=== PATIENT | male | born 1965 | race Caucasian/White ===

== ENCOUNTER 2016-10-17 17:33 | Emergency (ER) | payer OTHER ==
[~2016-10-17] VITALS: Ht 172.7 cm; Wt 100.0 kg
[~2016-10-17 17:33] MED LIST: ALBUTEROL SULF8.5 GM IH; AMITRIPTYLINE H50 MG PO; AMOXICILLIN500 MG PO; ATROVENT 0.06%15 ML BOTH NARES; ATROVENT H200 INHALA IH; AUGMENTIN875 MG PO; Atrovent 0.06% Nasal BOTH NARES; BUPROPION HCL150 M2 PO; CENTRUM COMPLE1 EACH PO; CLARITIN,ALAVAR10 MG PO; CLONAZEPAM0.5 MG PO; CLOPIDOGREL75 MG PO; CYCLOBENZAPRINE10 MG PO; Claritin,Alavart PO; DEPAKOTE250 MG PO; DICLOFENAC SODI75 MG PO; DILANTIN100 MG PO; Depakote PO; FENOFIBRATE160 M1 PO; FISH OIL 1,0001 EAC7 PO; FLONASE16 G1 BOTH NARES; FLUTICASONE PRO16 GM BOTH NARES; FOLIC ACID1 MG PO; Flexeril PO; Flonase BOTH NARES; Folvite PO; HYDROCHLOROTH12.5 M3 PO; Hydrodiuril,Oretic,E PO; IMITREX50 MG PO; IPRATROPIUM BRO15 ML BOTH NARES; Imitrex PO; KEFLEX500 MG PO; KLONOPIN0.5 M1 PO; KlonoPIN PO; LISINOPRIL10 MG PO; LISINOPRIL20 MG PO; LORATADINE10 M2 PO; LYRICA200 MG PO; LYRICA300 MG PO; MELOXICAM15 MG PO; METAXALL800 MG PO; METHOCARBAMOL750 MG PO; MULTIVITAMIN1 EAC2 PO; OMEGA III EPA1000 MG PO; OXYCODONE-APAP1 EAC6 PO; Omega III EPA + DHA PO; PERCOCET 5/31 TABLET PO; PERCOCET 7.51 TABLET PO; PLAVIX75 MG PO; PROAIR HFA8.5 GM IH; Paxil PO; Percocet 7.5/325,End PO; Plavix PO; Proventil,Ventolin H IH; RANITIDINE HCL150 MG PO; ROBAXIN750 MG PO; SIMVASTATIN80 MG PO; SKELAXIN800 MG PO; SUMATRIPTAN SUC50 MG PO; SYMBICORT60 INHALAT IH; Symbicort 160-4.5 mc IH; TIZANIDINE HCL4 M1 PO; Theragran-M,Centrum, PO; VENLAFAXINE HCL75 MG PO; VENTOLIN HFA18 GM IH; ZANTAC150 MG PO; ZOCOR80 MG PO; Zantac,Taladine PO; Zestril,Prinivil PO; Zocor PO
[2016-10-17 20:56] VITALS: BP 100/64
== END 2016-10-17 20:56 | disposition home or self-care (01) ==
LOC: EME → EDBD 17:33 → EME 17:33
DX: S16.1XXA Strain of muscle, fascia and tendon at neck level, initial encounter (principal); S40.011A Contusion of right shoulder, initial encounter; S60.212A Contusion of left wrist, initial encounter; M25.561 Pain in right knee; R51 Headache; V47.6XXA Car passenger injured in collision with fixed or stationary object in traffic accident, initial encounter; Z86.718 Personal history of other venous thrombosis and embolism; Z79.02 Long term (current) use of antithrombotics/antiplatelets; I10 Essential (primary) hypertension; E78.5 Hyperlipidemia, unspecified; J44.9 Chronic obstructive pulmonary disease, unspecified; F17.200 Nicotine dependence, unspecified, uncomplicated
CPT/HCPCS: 70450; 71010; 72125; 73030; 73110; 73564; 99281; 99284; J2270; J2405

== ENCOUNTER 2016-11-13 09:01 | Inpatient (IN) | payer OTHER ==
[~2016-11-13] VITALS: Ht 180.3 cm; Wt 103.2 kg
[2016-11-13 09:26] LABS: POINT-OF-CARE METER ID UU13113702
[2016-11-13] MEDS ORDERED: ROWEEPRA500 MG PO (09:36)
[2016-11-13 10:31] LABS: EOSINOPHIL (%) 1.9 % (0-5); EOSINOPHIL COUNT 0.2 K/uL (0-0.3); HEMATOCRIT 31.9 % (38.0-50.0); IMMATURE GRANULOCYTE (%) 0.6 % (0.0-0.7); IMMATURE GRANULOCYTE COUNT 0.1 K/uL; INSTRUMENT ABS NEUTROPHIL CT 7.8 K/uL; LYMPHOCYTE COUNT 2.4 K/uL (1.0-2.8); MCH 30.9 PG (29.0-34.0); MCHC 33.2 G/DL (30.0-36.0); MEAN PLAT.VOLUME 11.9 uM^3 (9.0-12.4); MONOCYTE COUNT 1.2 K/uL (0-0.8); NEUTROPHIL (%) 66.5 % (45-76); NEUTROPHIL COUNT 7.8 K/uL (1.8-6.4); PLATELET COUNT 210 K/uL (156-360); RBC DIS.WIDTH-CV 13.5 % (11.8-14.6); RBC DIS.WIDTH-SD 46.5 % (39-53); RED BLOOD COUNT 3.43 M/uL (4.00-5.50); WHITE BLOOD COUNT 11.7 K/uL (4.1-10.2)
[2016-11-13 10:51] LABS: CHLORIDE 103 mEq/L (99-109); POTASSIUM 3.8 mEq/L (3.7-5.4); SODIUM 132 mEq/L (136-147); TROP-I INTERPRETATION NEGATIVE; TROPONIN-I < 0.01 ng/mL (0.0-0.30)
[2016-11-13 10:52] LABS: MAGNESIUM 2.4 mg/dL (1.3-2.7)
[2016-11-13 10:53] LABS: GLUCOSE 139 mg/dL (70-99)
[2016-11-13 10:55] LABS: ANION GAP 14 MEQ/L (2-14); TOTAL BILIRUBIN 0.2 mg/dL (0.0-1.0)
[2016-11-13 10:57] LABS: ALKALINE PHOSPHATASE 44 IU/L (3-129); GFR ESTIMATE (CALCULATED) 16 mL/min/
[2016-11-13 10:58] LABS: UREA NITROGEN (BUN) 51 mg/dL (9-23)
[2016-11-13 11:00] LABS: LIPASE 39 U/L (1.0-51.0)
[2016-11-13 11:51] LABS: ADD MIUA? YES; BILIRUBIN NEGATIVE; BLOOD NEGATIVE; COLOR YELLOW ((YELLOW)); GLUCOSE (STRIP) NEGATIVE; KETONES 5; LEUKOCYTES NEGATIVE; NITRITE NEGATIVE; PROTEIN (STRIP) 30; SPECIFIC GRAVITY 1.014 (1.000-1.030); UROBILINOGEN 0.2 MG/DL (0.2-1.0)
[2016-11-13 12:02] LABS: BACTERIA NONE SEEN /HPF; CALCIUM OXALATE CRYSTALS 1+ /HPF; EPITHELIAL CELLS RARE /HPF; GRANULAR CASTS 0-5 /LPF; HYALINE CASTS 15-20 /LPF; MUCUS TRACE /LPF; RED BLOOD CELLS 0-5 /HPF (0-5); UCUL ADDED? NO; WHITE BLOOD CELLS 0-5 /HPF (0-5)
[2016-11-13 14:46] LABS: UR CREATININE CONCENTRATION 166.5 MG/DL
[2016-11-13 15:30] VITALS: BP 105/55
[2016-11-13 18:27] LABS: TROP-I INTERPRETATION NEGATIVE; TROPONIN-I < 0.01 ng/mL (0.0-0.30)
[2016-11-13 18:40] LABS: ANION GAP 9 MEQ/L (2-14); CHLORIDE 104 MEQ/L (99-109); CREATINE KINASE 429 IU/L (1-294); GFR ESTIMATE (CALCULATED) 26 mL/min/; GLUCOSE 130 mg/dL (70-99); POTASSIUM 3.6 MEQ/L (3.7-5.4); SAMPLE HEMOLYSIS CHECK 0; SAMPLE ICTERIC CHECK 0; SAMPLE LIPEMIA CHECK 0; SODIUM 133 MEQ/L (136-147); TOTAL CK 429 IU/L (1-294); UREA NITROGEN (BUN) 42 mg/dL (9-23)
[2016-11-13 19:44] VITALS: BP 88/51
[2016-11-13 20:54] LABS: BASE EXCESS -2.3 mEq/L (-3 to +3); BICARBONATE 23.2 mEq/L (22-26); CARBOXY HGB 3.8 % (0-5); PCO2 42 mm Hg (35-45); PO2 91 mm Hg (80-100); pH 7.35 (7.35-7.45)
[2016-11-13 20:55] LABS: COMMENTS - BLOOD GASES A+C+; DEVICE NC; O2 FLOW 3 L/MIN; SITE LR
[2016-11-14] VITALS (8 sets, daily range): BP systolic 84–158; BP diastolic 43–84
[2016-11-14 00:03] LABS: TROP-I INTERPRETATION NEGATIVE; TROPONIN-I < 0.01 ng/mL (0.0-0.30)
[2016-11-14 06:43] LABS: HEMATOCRIT 31.9 % (38.0-50.0); MCH 31.1 PG (29.0-34.0); MCHC 32.6 G/DL (30.0-36.0); MCV 95.5 FL (86-99); MEAN PLAT.VOLUME 11.8 uM^3 (9.0-12.4); PLATELET COUNT 206 K/uL (156-360); RBC DIS.WIDTH-CV 13.7 % (11.8-14.6); RBC DIS.WIDTH-SD 48.8 % (39-53); RED BLOOD COUNT 3.34 M/uL (4.00-5.50); WHITE BLOOD COUNT 9.1 K/uL (4.1-10.2)
[2016-11-14 08:19] LABS: ANION GAP 7 MEQ/L (2-14); CHLORIDE 111 MEQ/L (99-109); MAGNESIUM 2.2 mg/dl (1.3-2.7); SAMPLE HEMOLYSIS CHECK 0; SAMPLE ICTERIC CHECK 0; SAMPLE LIPEMIA CHECK 0; SODIUM 139 MEQ/L (136-147); UREA NITROGEN (BUN) 35 mg/dL (9-23)
[2016-11-14 08:21] LABS: GFR ESTIMATE (CALCULATED) 43 mL/min/; GLUCOSE 76 mg/dL (70-99); POTASSIUM 4.4 MEQ/L (3.7-5.4)
[2016-11-15 03:31] VITALS: BP 130/80
[2016-11-15 07:29] LABS: HEMATOCRIT 31.7 % (38.0-50.0); MCH 31.5 PG (29.0-34.0); MCHC 33.1 G/DL (30.0-36.0); MCV 95.2 FL (86-99); MEAN PLAT.VOLUME 12.3 uM^3 (9.0-12.4); PLATELET COUNT 198 K/uL (156-360); RBC DIS.WIDTH-CV 14.1 % (11.8-14.6); RBC DIS.WIDTH-SD 49.1 % (39-53); RED BLOOD COUNT 3.33 M/uL (4.00-5.50); WHITE BLOOD COUNT 8.8 K/uL (4.1-10.2)
[2016-11-15 07:47] VITALS: BP 148/77
[2016-11-15 07:52] LABS: ANION GAP 5 MEQ/L (2-14); CHLORIDE 110 MEQ/L (99-109); GFR ESTIMATE (CALCULATED) > 59 mL/min/; GLUCOSE 87 mg/dL (70-99); POTASSIUM 5.1 MEQ/L (3.7-5.4); SAMPLE HEMOLYSIS CHECK 0; SAMPLE ICTERIC CHECK 0; SAMPLE LIPEMIA CHECK 0; SODIUM 143 MEQ/L (136-147); UREA NITROGEN (BUN) 17 mg/dL (9-23)
[2016-11-15] MEDS ORDERED: NICOTINE PATCH1 EAC2 TD (09:36)
[2016-11-15] MEDS ORDERED: VIMPAT50 MG PO (09:36)
[2016-11-15] MEDS ORDERED: DIVALPROEX SOD250 MG PO (09:36)
== END 2016-11-15 10:43 | disposition home or self-care (01) | DRG 683 ==
LOC: EME 09:01 → 5SOUTH 12:09 → EDOF 12:09 → 5SOUTH 15:17
PROVIDERS: Internal Medicine; Internal Medicine Nephrology; Nurse Practitioner Adult Health; Physician Assistant
DX: N17.9 Acute kidney failure, unspecified (principal); I95.9 Hypotension, unspecified; E87.2 Acidosis; E87.1 Hypo-osmolality and hyponatremia; I11.9 Hypertensive heart disease without heart failure; N13.8 Other obstructive and reflux uropathy; D63.8 Anemia in other chronic diseases classified elsewhere; E11.9 Type 2 diabetes mellitus without complications; E78.5 Hyperlipidemia, unspecified; E86.0 Dehydration; F17.210 Nicotine dependence, cigarettes, uncomplicated; F31.9 Bipolar disorder, unspecified; I25.10 Atherosclerotic heart disease of native coronary artery without angina pectoris; G40.409 Other generalized epilepsy and epileptic syndromes, not intractable, without status epilepticus; I25.2 Old myocardial infarction; I65.22 Occlusion and stenosis of left carotid artery; I73.9 Peripheral vascular disease, unspecified; J44.9 Chronic obstructive pulmonary disease, unspecified; K21.9 Gastro-esophageal reflux disease without esophagitis; T50.2X5A Adverse effect of carbonic-anhydrase inhibitors, benzothiadiazides and other diuretics, initial encounter; Z79.02 Long term (current) use of antithrombotics/antiplatelets; Z82.49 Family history of ischemic heart disease and other diseases of the circulatory system; Z86.73 Personal history of transient ischemic attack (TIA), and cerebral infarction without residual deficits; Z91.19 Patient's noncompliance with other medical treatment and regimen; G89.29 Other chronic pain; R11.2 Nausea with vomiting, unspecified; M54.9 Dorsalgia, unspecified; R10.10 Upper abdominal pain, unspecified; R91.1 Solitary pulmonary nodule; R33.9 Retention of urine, unspecified; Z91.81 History of falling; E66.9 Obesity, unspecified; Z68.31 Body mass index [BMI] 31.0-31.9, adult
CPT/HCPCS: 36600; 70450; 71020; 71250; 74020; 74176; 76770; 80048; 80048 91; 80053; 80185; 81003; 82436; 82550 91; 82553; 82570; 82803; 82948; 83605; 83690; 83735; 84100; 84300; 84484; 85025; 85027; 87040; 93005; 93306; 93880; 94640; 94640 76; 94799; 99281; 99285; J1644; J2060; J3010; J7030; J7120

== ENCOUNTER 2017-03-15 03:28 | Emergency (ER) | payer OTHER ==
[~2017-03-15] VITALS: Ht 170.2 cm; Wt 111.5 kg
[~2017-03-15 03:28] MED LIST changes: +DIVALPROEX SOD250 MG PO; +NICOTINE PATCH1 EAC2 TD; +ROWEEPRA500 MG PO; +VIMPAT50 MG PO
[2017-03-15 04:40] LABS: ADD MIUA? NO; BILIRUBIN NEGATIVE; BLOOD NEGATIVE; COLOR YELLOW ((YELLOW)); GLUCOSE (STRIP) NEGATIVE; KETONES NEGATIVE; LEUKOCYTES NEGATIVE; NITRITE NEGATIVE; PROTEIN (STRIP) NEGATIVE; UCUL ADDED? NO; UROBILINOGEN 0.2 MG/DL (0.2-1.0)
[2017-03-15 05:12] VITALS: BP 117/87
== END 2017-03-15 05:13 | disposition home or self-care (01) ==
LOC: EME 03:28
PROVIDERS: Emergency Medicine
DX: G40.909 Epilepsy, unspecified, not intractable, without status epilepticus (principal); G89.29 Other chronic pain; M54.9 Dorsalgia, unspecified; E11.9 Type 2 diabetes mellitus without complications; E78.5 Hyperlipidemia, unspecified; I10 Essential (primary) hypertension; J44.9 Chronic obstructive pulmonary disease, unspecified; I25.2 Old myocardial infarction; F32.9 Major depressive disorder, single episode, unspecified; K21.9 Gastro-esophageal reflux disease without esophagitis; Z95.5 Presence of coronary angioplasty implant and graft; F17.200 Nicotine dependence, unspecified, uncomplicated
CPT/HCPCS: 81003; 99281; 99284; J2060

== ENCOUNTER 2017-12-03 09:37 | Emergency (ER) | payer OTHER ==
[~2017-12-03] VITALS: Ht 175.3 cm; Wt 80.8 kg
[2017-12-03 10:25] LABS: BASOPHIL (%) 0.5 % (0-1); EOSINOPHIL (%) 2.4 % (0-5); EOSINOPHIL COUNT 0.2 K/uL (0-0.3); HEMATOCRIT 34.8 % (38.0-50.0); HEMOGLOBIN 11.6 G/DL (12.5-16.6); IMMATURE GRANULOCYTE (%) 0.6 % (0.0-0.7); LYMPHOCYTE (%) 29.7 % (15-42); LYMPHOCYTE COUNT 2.4 K/uL (1.0-2.8); MCH 31.8 PG (29.0-34.0); MCHC 33.3 G/DL (30.0-36.0); MCV 95.3 FL (86-99); MONOCYTE (%) 11.1 % (3-12); MONOCYTE COUNT 0.9 K/uL (0-0.8); NEUTROPHIL (%) 55.7 % (45-76); NEUTROPHIL COUNT 4.5 K/uL (1.8-6.4); PLATELET COUNT 225 K/uL (156-360); RBC DIS.WIDTH-CV 13.8 % (11.8-14.6); RBC DIS.WIDTH-SD 48.5 % (39-53); RED BLOOD COUNT 3.65 M/uL (4.00-5.50)
[2017-12-03 10:34] LABS: ALBUMIN 3.9 g/dL (3.2-4.8); CHLORIDE 105 mEq/L (99-109); POTASSIUM 4.2 mEq/L (3.7-5.4); SODIUM 139 mEq/L (136-147)
[2017-12-03 10:35] LABS: PTT 27.4 SEC (25-37)
[2017-12-03 10:36] LABS: GLUCOSE 98 mg/dL (70-99); TOTAL PROTEIN 6.6 g/dL (6.4-8.3)
[2017-12-03 10:38] LABS: TOTAL BILIRUBIN 0.1 mg/dL (0.0-1.0)
[2017-12-03 10:40] LABS: ALKALINE PHOSPHATASE 47 IU/L (3-129); CREATININE 0.9 mg/dL (0.6-1.3); GFR ESTIMATE (CALCULATED) > 59 mL/min/ (58.99-99999)
[2017-12-03 10:41] LABS: UREA NITROGEN (BUN) 19 mg/dL (9-23)
[2017-12-03 10:42] LABS: AST (GOT) 19 IU/L (2-34); DIRECT BILIRUBIN 0.1 mg/dL (0.0-0.3)
[2017-12-03 10:43] LABS: ALT (GPT) 17 IU/L (3-49)
[2017-12-03 10:46] LABS: TROP-I INTERPRETATION NEGATIVE; TROPONIN-I < 0.01 ng/mL (0.0-0.30)
[2017-12-03] MEDS ORDERED: DEPAKOTE250 MG PO (13:52)
[2017-12-03] MEDS ORDERED: VIMPAT150 MG PO (13:53)
[2017-12-03] MEDS ORDERED: CELEXA20 MG PO (13:54)
[2017-12-03] MEDS ORDERED: NICODERM CQ1 EAC2 TD (13:54)
[2017-12-03] MEDS ORDERED: TIZANIDINE HCL4 MG PO (13:55)
[2017-12-03] MEDS ORDERED: CALAN80 MG PO (13:55)
[2017-12-03] MEDS ORDERED: SYMBICORT60 INHALAT IH (13:55)
[2017-12-03] MEDS ORDERED: DICLOFENAC SODI75 MG PO (13:55)
[2017-12-03] MEDS ORDERED: IMITREX50 MG PO (13:55)
[2017-12-03] MEDS ORDERED: VENTOLIN HFA18 GM IH (13:55)
[2017-12-03] MEDS ORDERED: HYDROCHLOROTHIA25 MG PO (13:56)
[2017-12-03] MEDS ORDERED: SIMVASTATIN80 MG PO (13:56)
[2017-12-03] MEDS ORDERED: ZANTAC150 MG PO (13:56)
[2017-12-03] MEDS ORDERED: LISINOPRIL10 MG PO (13:56)
[2017-12-03 15:07] VITALS: BP 116/814
== END 2017-12-03 15:08 | disposition left against medical advice (07) ==
LOC: EME 09:37
PROVIDERS: Emergency Medicine
DX: R07.9 Chest pain, unspecified (principal); M79.602 Pain in left arm; R51 Headache; R06.02 Shortness of breath; R20.0 Anesthesia of skin; G89.29 Other chronic pain; J44.9 Chronic obstructive pulmonary disease, unspecified; I10 Essential (primary) hypertension; E78.5 Hyperlipidemia, unspecified; I25.2 Old myocardial infarction; Z95.1 Presence of aortocoronary bypass graft; Z86.73 Personal history of transient ischemic attack (TIA), and cerebral infarction without residual deficits; Z79.02 Long term (current) use of antithrombotics/antiplatelets; F17.200 Nicotine dependence, unspecified, uncomplicated; Z53.29 Procedure and treatment not carried out because of patient's decision for other reasons
CPT/HCPCS: 71046; 71275; 80048; 80076; 83880; 84484; 85025; 85610; 85730; 93005; 99281; 99284; J2270